=== PATIENT | male | born 1930 | race Caucasian/White ===

== ENCOUNTER 2018-02-17 07:12 | Day surgery (SDC) | payer OTHER, BC ==
[2018-02-13 11:31] VITALS: BMI 30.9
[2018-02-17] MEDS: CEFAZOLIN 2 GM/D5W 2 GM/50 ML ML IVPB SCH ×3 (00:18→04:13)
[2018-02-17 06:40] VITALS: PULSE 84
[~2018-02-17 07:12] MED LIST: ACETAMINOPHEN 325 MG TABLET (FP) PO PRN; ACETAMINOPHEN 325 MG TABLET (FP) PO SCH; BUPIVACAINE HCL/PF (5 MG/ML) 30 ML VIAL IJ ONE; DESFLURANE GAS 240 ML BOTTLE IH ONE; DEXAMETHASONE SOD PHOSPHATE 4 MG/1 ML VIAL ONE; DEXAMETHASONE SOD PHOSPHATE/PF 10 MG/ML SDV ONE; GLYCOPYRROLATE 0.2 MG/1 ML VIAL ONE; LIDOCAINE 1%/EPI 1:100000 (20 ML MULTI DOSE VIAL) ONE; LIDOCAINE HCL/PF 2% SDV 5ML VIAL ONE; MECLIZINE HCL 12.5 MG TABLET PO PRN; MIDAZOLAM HCL 2 MG/2 ML SINGLE DOSE VIAL ONE; NEOSTIGMINE METHYLSULFATE 0.5 MG/ML - 10 ML MDV ONE; ONDANSETRON 4 MG/2 ML VIAL IVPUSH PRN; ONDANSETRON 4 MG/2 ML VIAL ONE; PROMETHAZINE HCL 25 MG/1 ML VIAL IVPB PRN; PROMETHAZINE HCL 25 MG/1 ML VIAL IVPUSH PRN; PROPOFOL 20 ML ONE; ROCURONIUM BROMIDE 50 MG/5 ML VIAL ONE; ROSUVASTATIN CA 20 MG TABLET (FP) PO SCH; SODIUM CHLORIDE 0.9% P/F 10 ML VIAL IJ ONE; ceFAZolin SODIUM 1 GM VIAL ONE; diphenhydrAMINE HCL 25 MG CAPSULE (FP) PO SCH; ePHEDrine SULFATE 50 MG/1 ML AMPULE ONE; oxyCODONE HCL 5 MG TABLET PO ONE; oxyCODONE HCL 5 MG TABLET PO PRN
[2018-02-17 08:19] LABS: HEMATOCRIT 28.6 % (35.4-49); HEMOGLOBIN 9.3 GM/dl (11.7-16.9); MCH 26.7 pg (25.7-33.7); MCHC 32.4 g/dl (32.0-35.9); MEAN CELL VOLUME 82.4 fl (80-96); MEAN PLT VOLUME 7.3 fl (7.5-11.1); PLATELET COUNT 325 K/MM3 (134-434); RBC 3.48 M/mm3 (4.00-5.60); WHITE BLOOD COUNT 7.9 K/mm3 (4.0-10.8)
[2018-02-17] MEDS ORDERED: PT OWN MED DRAWER 7, Y5N ONE (09:39)
[2018-02-17] MEDS ORDERED: FUROSEMIDE 40 MG TABLET (FP) PO SCH (10:00)
[2018-02-17] MEDS ORDERED: DOXAZOSIN MESYLATE 4 MG TABLET PO SCH (10:00)
[2018-02-17] MEDS ORDERED: POTASSIUM CHLORIDE TABS 20 MEQ TABLET.ER (FP) PO SCH (10:00)
[2018-02-17] MEDS ORDERED: ASPIRIN 81 MG CHEWABLE TABLETS PO SCH (10:00)
[2018-02-17] MEDS ORDERED: LISINOPRIL 10 MG TABLET (FP) PO SCH (10:00)
[2018-02-17] MEDS ORDERED: DOXAZOSIN MESYLATE 8 MG TABLET PO SCH (10:00)
[2018-02-17 10:16] VITALS: BP 119/56; TEMP 97.7
--- NOTE | 2018-03-09 08:26 | OP ---
DATE OF OPERATION: 02/17/2018 PREOPERATIVE DIAGNOSIS: Left proximal humerus fracture. POSTOPERATIVE DIAGNOSIS: Left proximal humerus fracture. PROCEDURE: Left proximal humerus open reduction internal fixation. SURGEON: Booker Monk MD SALES OFFICE ADMINISTRATOR: YUNG Palmer, whose skillful assistance was necessary for the safe and timely performance of this procedure. Mr. Horton was able to help provide limb positioning, retraction, assistance in fracture reduction, as well as the insertion of orthopedic fixation hardware. ANESTHESIA: Regional. POSTOPERATIVE CONDITION: Stable. COMPLICATIONS: None. IMPLANTS: Andreas proximal humerus plate with a combination of locking and nonlocking screws. INDICATIONS: This is a pleasant 87-year-old gentleman who had suffered a left proximal humerus fracture. Treatment options including nonoperative versus operative management were reviewed. Given the displacement present, it was suggested that operative care provided better long-term outcome. However, we discussed the option of nonoperative care with malunion and limited shoulder function, however, general comfortable . Ultimately, the patient elected for operative care. Operative risks were reviewed with the patient and his family in detail including bleeding, infection, neurovascular injury, need for further surgery, postoperative pain and stiffness, nonunion, malunion, hardware failure and cutout. We discussed medical risks such as heart attack, stroke, DVT, PE, and . I addressed the use of perioperative antibiotic and DVT prophylaxis. I addressed all the patients questions and concerns as well as his familys. We reviewed the postoperative rehabilitation course. He elected to proceed. DESCRIPTION OF PROCEDURE: The patient was brought to the operating room after administration of a regional block in the preoperative holding area. He was placed in the beach-chair position, careful to pad all bony prominences. Following administration of anesthetic, the left upper extremity was prepped and draped in the usual sterile fashion. A preoperative dose of antibiotics was given, and the usual time-out procedure was performed. An incision was now planned out over the anterior aspect of the shoulder. This was carried down through skin to subcutaneous tissue. Bone spreading was used to expose the fascia over the deltoid and pectoral interval. The cephalic vein was identified and retracted laterally ligating medial branches in order to provide better mobilization. Some of the scar tissue between the deltoid and subacromial space was lysed. The proximal humerus was now exposed. Retractors were placed to maintain good visualization. Periosteum was now elevated off of the fracture site from an anterolateral aspect exposing the fracture better. Fracture was now debrided of any loose debris within the site. A moderate amount of comminution was noted. The rotator cuff was inspected and no tears were seen. FiberWire sutures were placed into the subscapularis, supraspinatus, and infraspinatus to aid in fracture reduction. The fracture was now reduced and held in place utilizing K-wires to help with the reduction. A plate was chosen in order to obtain satisfactory fixation both proximally and distally to the fracture site. Plate was now applied initially using nonlocking screws to the humeral shaft. To better aid in the reduction, it was decided to perform a biceps tenotomy. The rotator cuff interval was opened, and the Metzenbaum scissors were used to release the biceps just lateral to the glenoid. The interval was then closed. Fluoroscopy was now used to confirm plate position, which was satisfactory. Utilizing locking screws proximally, multiple screws were passed into the humeral head, taking care to avoid penetration of the articular surface. The proximal portion now being filled, distally, the shaft screws were filled with nonlocking screws. Good purchase was achieved. At this point, the entire construct was examined both visually and fluoroscopically. Both fracture reduction and hardware placement were satisfactory. The wound was copiously irrigated. The fascia was approximated using 0 Vicryl. The subcutaneous tissue was approximated using 3-0 Vicryl. Skin was closed using 3-0 nylon suture. Sterile dressings were placed. The patient was transferred to the recovery room in stable condition. Enriqueta DILL/[id number]
== END 2018-02-17 12:57 | disposition home or self-care (01) ==
LOC: FM/S 07:12 → FASU 07:12 → FM/S 07:14 → FASU 12:57
PROVIDERS: ATTEND Orthopaedic Surgery Sports Medicine
PROC: 0PSD04Z Reposition Left Humeral Head with Internal Fixation Device, Open Approach (ICD-10-PCS; principal; 2018-02-17)
DX: S42.292A Other displaced fracture of upper end of left humerus, initial encounter for closed fracture (principal); X58.XXXA Exposure to other specified factors, initial encounter; Y93.9 Activity, unspecified; Y92.9 Unspecified place or not applicable
CPT/HCPCS: 36415; 73060-TC-LT-FY; 82962; 85027; 94760